=== PATIENT | female | born 1995 | race Caucasian/White ===

== ENCOUNTER 2017-04-30 19:45 | Emergency (ER) | payer OTHER ==
[~2017-04-30] VITALS: Ht 157.5 cm; Wt 59.4 kg
[~2017-04-30 19:45] MED LIST: ALPR.25 PO; Augmentin600 MG/5 M PO; DIFLUCAN PO; Diastat2.5 MG PR; Diflucan100 MG PO; FENT200LOZ MM; FLUC150A PO; HYDROCODON-ACE118 ML PO; Keflex500 MG PO; NYST100TC TOP; Tylenol W/Code120 ML PO; VALP250S60 PO
[2017-04-30 23:13] LABS: Source, Urine Clean Catch
[2017-04-30 23:16] LABS: Bilirubin, Urine Neg (Neg); Blood, Urine 3+ (Neg); Glucose Qualitative, Urine Neg (Neg); Ketones, Urine Neg (Neg); Leukocyte Esterase, Urine Neg (Neg); Nitrite, Urine Neg (Neg); Protein, Urine Neg (Neg); Specific Gravity, Urine 1.005 (1.003-1.022); Urobilinogen, Urine NORM (Normal)
[2017-04-30] MEDS ORDERED: PROBIOTIC1 EAC1 PO (23:26)
[2017-04-30 23:28] LABS: Appearance, Urine Clear (Clear); Color, Urine Yellow (P-Yellow)
[2017-04-30 23:29] LABS: Bacteria Few /hpf; Red Blood Cells, Urine 0-2 /hpf (0-2); Squamous Epithelial Cells Not Seen /hpf (Few); White Blood Cells, Urine 0-2 /hpf (0-5)
[2017-05-01 00:13] LABS: Influenza A Negative (NEGATIVE); Influenza B Negative (NEGATIVE)
[2017-05-01] MEDS ORDERED: AMOCLA400S PO (00:17)
== END 2017-05-01 00:58 | disposition home or self-care (01) ==
LOC: ER 19:45
PROVIDERS: Emergency Medicine
DX: J32.9 Chronic sinusitis, unspecified (principal); Z79.899 Other long term (current) drug therapy
CPT/HCPCS: 71046; 81001; 87804; 99283; P9612

== ENCOUNTER 2020-06-23 18:33 | Inpatient (IN) | payer MEDICARE, OTHER ==
[~2020-06-23] VITALS: Ht 157.5 cm; Wt 61.5 kg
[~2020-06-23 18:33] MED LIST changes: +AMOCLA400S PO; -VALP250S60 PO; +VALPROIC A250 MG/52 PO
[2020-06-23 20:14] LABS: Hematocrit 38.1 % (33.0-51.0); Hemoglobin 12.7 g/dL (11.5-16.0); Mean Corpuscular HGB Conc 33.3 g/dL (31.5-36.5); Mean Corpuscular Volume 90 fL (80-100); Platelet Count 120 K/mm3 (150-400); RDW Coefficient Variation 13.5 % (11.7-14.2); RDW Standard Deviation 45.1 fL (35.1-46.3); Red Blood Cell Count 4.23 M/mm3 (3.80-5.20); White Blood Cell Count 15.22 K/mm3 (4.00-11.30)
[2020-06-23 20:15] LABS: Mean Platelet Volume 13.3 fL (9.1-12.4)
[2020-06-23 20:25] LABS: Source, Urine Catheter
[2020-06-23 20:26] LABS: Alanine Aminotransfer (ALT/SGP 714 U/L (12-78); Albumin/Globulin Ratio 0.8 (0.8-1.8); Alk Phos 344 U/L (50-136); Anion Gap 4 mmol/L (6-16); Aspartate Aminotrans (AST/SGOT 659 U/L (12-37); Bilirubin, Total 0.4 mg/dL (0.1-1.0); Blood Urea Nitrogen 27 mg/dL (8-24); CO2, Blood 26 mmol/L (21-32); Calcium, Blood 8.8 mg/dL (8.5-10.1); Chloride, Blood 112 mmol/L (98-108); Creatinine, Blood 0.58 mg/dL (0.40-1.00); Globulin, Blood 3.9 g/dL (2.2-4.0); Glomerular Filtration Rate >60 (60-); Glucose, Blood 94 mg/dL (70-99); Potassium, Blood 4.6 mmol/L (3.5-5.5); Sodium, Blood 142 mmol/L (136-145); Total Protein, Blood 6.9 g/dL (6.4-8.2)
[2020-06-23 20:30] LABS: Bilirubin, Urine Neg (Neg); Blood, Urine 4+ (Neg); Glucose Qualitative, Urine Neg (Neg); Ketones, Urine 1+ (Neg); Leukocyte Esterase, Urine 1+ (Neg); Nitrite, Urine Neg (Neg); Protein, Urine 1+ (Neg); Specific Gravity, Urine 1.015 (1.003-1.022); Urobilinogen, Urine 2+ (Normal)
[2020-06-23 20:33] LABS: BAND PERCENT MAN 9 % (0-8); BASOPHILS PERCENT MAN 0 % (0-2); EOSINOPHILS PERCENT MAN 0 % (0-6); LYMPHOCYTES % ATYPICAL MANUAL 9 % (0-0); LYMPHOCYTES ABSOLUTE MAN 8.82 K/mm3 (0.84-5.20); LYMPHOCYTES PERCENT MAN 49 % (21-46); MONOCYTES ABSOLUTE MAN 1.82 K/mm3 (0.16-1.47); MONOCYTES PERCENT MAN 12 % (4-13); NEUTROPHILS ABSOLUTE MAN 4.56 K/mm3 (1.96-9.15); SEG NEUTROPHILS PERCENT MAN 21 % (41-73); TOTAL CELLS COUNTED 100
[2020-06-23 20:34] LABS: Appearance, Urine Clear (Clear); Color, Urine Yellow (P-Yellow)
[2020-06-23 20:36] LABS: Amorphous Light (0-Heavy); Bacteria Few /hpf; Mucus Light (0-Heavy); Squamous Epithelial Cells Rare /hpf (Few)
[2020-06-23] MEDS ORDERED: LACT PO (21:10)
[2020-06-23] MEDS ORDERED: IBUP200 PO (21:12)
[2020-06-23 21:17] LABS: Valproic Acid 56.6 ug/mL (50.0-100.0)
[2020-06-23] MEDS ORDERED: DEPO SHOT INJ (21:23)
[2020-06-23 21:33] LABS: Acetaminophen, Random <2.0 ug/mL (10.0-30.0)
[2020-06-23 22:02] LABS: Prolactin 39.5 ng/mL
[2020-06-24 01:15] LABS: Influenza A, PCR NEGATIVE (NEGATIVE); Influenza B, PCR NEGATIVE (NEGATIVE); Resp Syncytial Virus, PCR NEGATIVE (NEGATIVE); SARS-Cov-2 (COVID-19) PCR, MMC NEGATIVE (NEGATIVE)
--- NOTE | 2020-06-24 06:38 | NUR ---
shift summary pt was fairly restless through night. nonverbal at baseline. mom at bedside, and is caregiver for pt. pt is febrile with temp 101.2 to 100.5 after tylenol, icepacks, fan, and blankets removed. pt is flushed. hr also increased from 80's to 130's/140's - md notified and instructed to get temperature down. bp is holding steady at about 100's/60's. incontinent - attends in place, uop x1. no bm. seizure precautions in place. call light within reach, bed in lowest position. will continue to monitor.
--- NOTE | 2020-06-24 08:00 | NUR ---
PT LAYING IN BED VERY SLEEPY, MOM AT BEDSIDE. KEPPRA WAS GIVEN EARLY THIS AM, WILL HOLD 9AM DOSE, AND PUT HER ON HOME SCHEDULE, LUNGS ARE CLEAR IN UPPER [place]A, COURSE IN BASES, RESP EVEN AND UNLABORED, NO COUGH NOTED, IS ON R/A, HRR, TELE IN PLACE RUNNING SR PER MONITOR, SEE STRIP, EDEMA NOTED TO EXT, PT IS NONVERBAL, SHE USES A BOTTLE FOR MILK, ATTENDS IN PLACE, IV SITE IS CLEAR AND PATENT, BTX4, ABD FLAT SOFT NONTENDER, SKIN C/W/D, MAEW, IS BED REST AT THIS TIME, ELENI, CALL LIGHT IN REACH.
[2020-06-24 09:34] LABS: Hemoglobin 11.1 g/dL (11.5-16.0); Mean Corpuscular HGB Conc 32.6 g/dL (31.5-36.5); Mean Corpuscular Volume 92 fL (80-100); Platelet Count 114 K/mm3 (150-400); RDW Coefficient Variation 13.8 % (11.7-14.2); RDW Standard Deviation 46.9 fL (35.1-46.3); White Blood Cell Count 10.21 K/mm3 (4.00-11.30)
[2020-06-24 10:16] LABS: Alanine Aminotransfer (ALT/SGP 513 U/L (12-78); Albumin, Blood 2.6 g/dL (3.4-5.0); Albumin/Globulin Ratio 0.8 (0.8-1.8); Alk Phos 256 U/L (50-136); Anion Gap 3 mmol/L (6-16); Aspartate Aminotrans (AST/SGOT 429 U/L (12-37); Bilirubin, Total 0.3 mg/dL (0.1-1.0); Blood Urea Nitrogen 14 mg/dL (8-24); Bun/Creatinine Ratio 26.6 (12.0-20.0); CO2, Blood 24 mmol/L (21-32); Calcium, Blood 7.9 mg/dL (8.5-10.1); Chloride, Blood 116 mmol/L (98-108); Creatinine, Blood 0.53 mg/dL (0.40-1.00); Globulin, Blood 3.1 g/dL (2.2-4.0); Glomerular Filtration Rate >60 (60-); Glucose, Blood 82 mg/dL (70-99); Potassium, Blood 4.1 mmol/L (3.5-5.5); Sodium, Blood 143 mmol/L (136-145); Total Protein, Blood 5.7 g/dL (6.4-8.2)
[2020-06-24 10:25] LABS: BASOPHILS PERCENT MAN 1 % (0-2); EOSINOPHILS PERCENT MAN 0 % (0-6); LYMPHOCYTES % ATYPICAL MANUAL 8 % (0-0); LYMPHOCYTES ABSOLUTE MAN 7.55 K/mm3 (0.84-5.20); LYMPHOCYTES PERCENT MAN 66 % (21-46); MONOCYTES ABSOLUTE MAN 0.91 K/mm3 (0.16-1.47); MONOCYTES PERCENT MAN 9 % (4-13); NEUTROPHILS ABSOLUTE MAN 1.32 K/mm3 (1.96-9.15); OTHER CELL PERCENT MAN 3 % (0-0); SEG NEUTROPHILS PERCENT MAN 13 % (41-73); TOTAL CELLS COUNTED 100
--- NOTE | 2020-06-24 14:33 | NUR ---
pt more awake, moaning, caregiver asked for some tylenol. this was given, she is able to swallow po meds with a bottle. no further changes, call light in reach.
--- NOTE | 2020-06-24 14:54 | NUR ---
Advance Directive education attempted. Patient's caregiver is bedside and I explain the purpose of my visit. The caregiver receives the Advance Directive booklet and states that she will give it to the patient's mother. She reports that the patient has improved markedly. I tell her that I will remain available to answer any questions.
--- NOTE | 2020-06-24 17:06 | NUR ---
This nurse assumed care of the pt. The Pt is resting in bed with caregiver at the bedside. The caregiver calls for help when needed.
--- NOTE | 2020-06-24 18:02 | NUR ---
Met pt and her CG Riddhi at bedside. Pt is clearly not feeling well; her eyes are about have open and her lids are red and eyes and nose are both watering/runny. She shoves away the blankets and when she coughs, can hear the congestion. Riddhi reports pt is mentally a baby, and continues drinking a bottle, only instead of baby formula, isosource is used along with rice cereal. She states pt's parents are very attentive to her needs, and they provided total care for pt until a few years ago, when they hired several caregivers to help. They also have a younger son with ADHD. Riddhi is very affectionate toward the pt. No s/s of distress. 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
[2020-06-25 03:59] LABS: Anion Gap 6 mmol/L (6-16); Blood Urea Nitrogen 7 mg/dL (8-24); Bun/Creatinine Ratio 13.6 (12.0-20.0); CO2, Blood 22 mmol/L (21-32); Calcium, Blood 8.4 mg/dL (8.5-10.1); Chloride, Blood 109 mmol/L (98-108); Creatinine, Blood 0.51 mg/dL (0.40-1.00); Glomerular Filtration Rate >60 (60-); Glucose, Blood 83 mg/dL (70-99); Potassium, Blood 4.4 mmol/L (3.5-5.5); Sodium, Blood 137 mmol/L (136-145)
[2020-06-25 04:48] LABS: Hematocrit 32.6 % (33.0-51.0); Hemoglobin 10.8 g/dL (11.5-16.0); Mean Corpuscular HGB 29.9 pg (26.0-34.0); Mean Corpuscular HGB Conc 33.1 g/dL (31.5-36.5); Mean Corpuscular Volume 90 fL (80-100); Mean Platelet Volume 12.9 fL (9.1-12.4); Platelet Count 149 K/mm3 (150-400); RDW Coefficient Variation 13.9 % (11.7-14.2); RDW Standard Deviation 46.5 fL (35.1-46.3); Red Blood Cell Count 3.61 M/mm3 (3.80-5.20); White Blood Cell Count 8.37 K/mm3 (4.00-11.30)
[2020-06-25 06:19] LABS: BAND PERCENT MAN 10 % (0-8); BASOPHILS PERCENT MAN 0 % (0-2); EOSINOPHILS PERCENT MAN 0 % (0-6); LYMPHOCYTES % ATYPICAL MANUAL 12 % (0-0); LYMPHOCYTES ABSOLUTE MAN 5.94 K/mm3 (0.84-5.20); LYMPHOCYTES PERCENT MAN 59 % (21-46); MONOCYTES ABSOLUTE MAN 0.75 K/mm3 (0.16-1.47); MONOCYTES PERCENT MAN 9 % (4-13); NEUTROPHILS ABSOLUTE MAN 1.67 K/mm3 (1.96-9.15); SEG NEUTROPHILS PERCENT MAN 10 % (41-73); TOTAL CELLS COUNTED 100
--- NOTE | 2020-06-25 06:25 | NUR ---
SHIFT SUMMARY PT ALERT THIS SHIFT, RESPONDS TO PAIN, MOANING, AGITATED. MEDICATED W/ ATIVAN PER EMAR X2 THIS SHIFT. SP02>90% ON RA. PT HAS DRY, OCCASIONAL COUGH. TELEMETRY READS ST W/ PACS, HR 100'S-110'S. BP SOFT. PT INCONTINENT, C/D ATTENDS IN PLACE. CAT SWAMPER AT BEDSIDE TO REPOSITION AND FEED PT W/ BOTTLE. NS INFUSED PER EMAR. CALL LIGHT IN REACH. WILL GIVE REPORT TO ONCOMING NURSE.
[2020-06-25 07:09] LABS: HBSAG SCREEN Negative (Negative); HEP A AB, IGM Negative (Negative); HEP B CORE AB, IGM Negative (Negative); HEP C VIRUS AB <0.1 (0.0-0.9)
--- NOTE | 2020-06-25 08:00 | NUR ---
pt laying in bed no s/s of distress, resting comfortably, nonverbal, caregiver in room, ulysses was sent to pharmacy to be relabeled to be scanned, pt having a hard time getting it down, asked to have it changed to pill form as mom says she can swallow pills, lungs are courese t/o, resp even and unlabord, no cough noted, hrr, tele in place running st per monitor, see strip, mild edema noted to b/l blaine vLuis Eduardos. stable, afebrile, iv site is clear and patent, btx4, abd flat soft nontender, incont of stool and urine, skin c/w/d, maew, etelvina, call light in reach. caregiver at bedside.
--- NOTE | 2020-06-25 10:16 | NUR ---
pt status changed to medical with tele.
--- NOTE | 2020-06-25 11:19 | NUR ---
pt was changed to medical status, report given to Maisha, pt transfered via bed, with all belongings.
--- NOTE | 2020-06-25 19:40 | NUR ---
nonverbal, child like, incontenent, fed via nursing bottle, caregiver or parent at bedside, medicated as prescribed but taste of keppra caused pt to spit it out, she took medication as pills but has reacted to the taste of the liquid keppra, pharmacy consulted and recommended changing form to pill from liquid, will see if that accomplishes purpose, mother expressed support of pills and concern that pt would be discharged on Sunday, which would mean father and mother would not be home, nurse recommended talking to discharge planning, rm air, infusing, caregiver at bedside and alarm on bed, pt resting quietly when not being medicated
[2020-06-26 04:56] LABS: Hematocrit 35.2 % (33.0-51.0); Hemoglobin 11.7 g/dL (11.5-16.0); Mean Corpuscular HGB Conc 33.2 g/dL (31.5-36.5); Mean Corpuscular Volume 90 fL (80-100); Mean Platelet Volume 12.5 fL (9.1-12.4); Platelet Count 182 K/mm3 (150-400); RDW Coefficient Variation 14.2 % (11.7-14.2); White Blood Cell Count 7.75 K/mm3 (4.00-11.30)
[2020-06-26 05:14] LABS: Alanine Aminotransfer (ALT/SGP 554 U/L (12-78); Albumin, Blood 2.8 g/dL (3.4-5.0); Albumin/Globulin Ratio 0.8 (0.8-1.8); Alk Phos 319 U/L (50-136); Anion Gap 6 mmol/L (6-16); Aspartate Aminotrans (AST/SGOT 454 U/L (12-37); Bilirubin, Total 0.4 mg/dL (0.1-1.0); Blood Urea Nitrogen 8 mg/dL (8-24); Bun/Creatinine Ratio 14.3 (12.0-20.0); CO2, Blood 24 mmol/L (21-32); Calcium, Blood 8.6 mg/dL (8.5-10.1); Chloride, Blood 111 mmol/L (98-108); Creatinine, Blood 0.56 mg/dL (0.40-1.00); Globulin, Blood 3.4 g/dL (2.2-4.0); Glomerular Filtration Rate >60 (60-); Glucose, Blood 87 mg/dL (70-99); Potassium, Blood 4.4 mmol/L (3.5-5.5); Sodium, Blood 141 mmol/L (136-145); Total Protein, Blood 6.2 g/dL (6.4-8.2)
[2020-06-26 05:25] LABS: BAND PERCENT MAN 2 % (0-8); BASOPHILS ABSOLUTE MAN 0.23 K/mm3 (0.00-0.23); BASOPHILS PERCENT MAN 3 % (0-2); EOSINOPHILS PERCENT MAN 0 % (0-6); LYMPHOCYTES ABSOLUTE MAN 5.03 K/mm3 (0.84-5.20); LYMPHOCYTES PERCENT MAN 65 % (21-46); MONOCYTES ABSOLUTE MAN 0.85 K/mm3 (0.16-1.47); MONOCYTES PERCENT MAN 11 % (4-13); NEUTROPHILS ABSOLUTE MAN 1.62 K/mm3 (1.96-9.15); SEG NEUTROPHILS PERCENT MAN 19 % (41-73); TOTAL CELLS COUNTED 100
--- NOTE | 2020-06-26 05:46 | NUR ---
SHIFT SUMMARY- PT. NON-VERBAL, MOANS, RESTLESS IN BED DURING THE NIGHT. CAREGIVER AT THE BEDSIDE. MEDICATED WITH ATIVAN X2 PER EMAR, WITH GOOD EFFECT. PT. APPEARED COMFORTABLE ONCE ABLE TO SLEEP, NO APPARENT DISTRESS NOTED. BOTTLE FED BY CAREGIVER PRN, ATTENDS IN PLACE. CALL LIGHT WITHIN REACH, SIDE RAILS UPX2, AND BED ALARM ON FOR SAFETY. WILL CONT TO MONITOR.
--- NOTE | 2020-06-26 06:47 | NUR ---
PT. REFUSING TO TAKE 0600 KEPPRA TABLET. PER CAREGIVER PT. TAKES PILLS WITH BOTTLE FEEDINGS AND PT. ALSO REFUSING FEEDINGS AT THIS TIME. [facility] TO ATTEMPT TO ADMINISTER LATER THIS AM.
--- NOTE | 2020-06-26 18:53 | NUR ---
SHIFT SUMMARY- PT IS NONVERBAL, ALERT AND PLESANT. SHE IS EATING OUT OF HER BOTTLE. CAREGIVERS HAVE BEEN PRESENT FOR THE DURATION OF THIS SHIFT. SHE RECIEVED AN IV BOLUS THIS SHIFT FOR LOW BP. SHE RECIEVED A BED BATH THIS SHIFT. HER BED IS IN THE LOW POSITION AND CALL LIGHT IS WITHIN REACH.
--- NOTE | 2020-06-27 05:21 | NUR ---
SHIFT SUMMARY- PT. ASLEEP MOST OF THE NIGHT, NO APPARENT DISTRESS NOTED. ANXIOUS LAST NIGHT AND ALSO THIS AM WITH ATTENDS/LINEN CHANGE, MEDICATED PER EMAR WITH GOOD EFFECT. CAREGIVER REMAINS AT BEDSIDE. CALL LIGHT WITHIN REACH AND SIDE RAILS UPX3. WILL CONT TO MONITOR.
[2020-06-27 06:01] LABS: Anion Gap 4 mmol/L (6-16); Blood Urea Nitrogen 8 mg/dL (8-24); Bun/Creatinine Ratio 16.5 (12.0-20.0); CO2, Blood 25 mmol/L (21-32); Calcium, Blood 8.7 mg/dL (8.5-10.1); Chloride, Blood 112 mmol/L (98-108); Creatinine, Blood 0.48 mg/dL (0.40-1.00); Glomerular Filtration Rate >60 (60-); Glucose, Blood 85 mg/dL (70-99); Potassium, Blood 4.3 mmol/L (3.5-5.5); Sodium, Blood 141 mmol/L (136-145)
--- NOTE | 2020-06-27 06:25 | NUR ---
PT. VERY AGITATED THIS AM AFTER ATTENDS CHANGE. ATIVAN GIVEN PER EMAR. PT. ASLEEP AT THIS TIME. PER CAREGIVER PT. TO TAKE 0600 KEPPRA TABLET LATER THIS AM ALONG WITH BOTTLE FEEDING. WILL REPORT TO ONCOMING DAY RN.
[2020-06-27 11:32] LABS: Alanine Aminotransfer (ALT/SGP 512 U/L (12-78); Albumin/Globulin Ratio 0.8 (0.8-1.8); Alk Phos 308 U/L (50-136); Aspartate Aminotrans (AST/SGOT 301 U/L (12-37); Bilirubin, Direct <0.1 mg/dL (0.0-0.3); Bilirubin, Indirect Unable to Calculate mg/dL (0.1-0.7); Bilirubin, Total 0.3 mg/dL (0.1-1.0); Globulin, Blood 3.7 g/dL (2.2-4.0); Total Protein, Blood 6.7 g/dL (6.4-8.2)
[2020-06-27] MEDS ORDERED: LEVE500 PO (14:33)
[2020-06-27] MEDS ORDERED: AMOCLA875 PO (14:33)
[2020-06-27] MEDS ORDERED: LACT PO (14:33)
--- NOTE | 2020-06-27 15:00 | NUR ---
DISCHARGE INSTRUCTIONS COMPLETED AND DISCUSSED WITH PTS MOTHER EXPRESSING UNDERSTANDING. SCRIPTS FAXED TO [facility] PER FAMILY REQUEST. TO [facility] VIA W/C.
== END 2020-06-27 15:01 | disposition home or self-care (01) | DRG 871 ==
LOC: ER 18:33 → PCU 21:59 → MEDS 06-25 11:18
PROVIDERS: Emergency Medicine; Family Medicine; Nurse Practitioner Acute Care; Student in an Organized Health Care Education/Training Program; ADMIT Family Medicine
DX: A41.9 Sepsis, unspecified organism (principal); J18.9 Pneumonia, unspecified organism; G93.41 Metabolic encephalopathy; N39.0 Urinary tract infection, site not specified; Q93.51 Angelman syndrome; R74.01 Elevation of levels of liver transaminase levels; J32.9 Chronic sinusitis, unspecified; T42.6X5A Adverse effect of other antiepileptic and sedative-hypnotic drugs, initial encounter; Z20.822 Contact with and (suspected) exposure to COVID-19; M41.9 Scoliosis, unspecified; G40.909 Epilepsy, unspecified, not intractable, without status epilepticus; F41.9 Anxiety disorder, unspecified; K59.00 Constipation, unspecified; H91.90 Unspecified hearing loss, unspecified ear; Z98.890 Other specified postprocedural states; Z79.899 Other long term (current) drug therapy; Z99.3 Dependence on wheelchair
CPT/HCPCS: 0241U; 36415; 71045; 74176; 76705; 80048; 80053; 80074; 80076; 80164; 81001; 83605; 84145; 84146; 85025; 87040; 87086; 94762; 96365; 99285-25; A9270; G0480; J0456; J0696; J1650; J2060; J7030; J7050; J7120; P9612